=== PATIENT | female | born 1945 | race Two or more races ===

== ENCOUNTER 2016-08-17 17:48 | Inpatient (IN) | payer MEDICARE, MEDICAID ==
[~2016-08-17] VITALS: Ht 162.6 cm; Wt 65.9 kg
[~2016-08-17 17:48] MED LIST: CALC-355 PO; CHLO25TA PO; CHOL400C11 PO; CHOL5000 PO; FLUT1AER INH; LEVO25TA4 PO; LISI-170 PO; LISI2.5T PO; METO25TA35 PO; NAPR375T3 PO; PRAV10TA2 PO; calcium PO; statin PO; water pill PO
[2016-08-17 19:00] LABS: BLOOD UREA NITROGEN 20 mg/dL (7-18)
[2016-08-17 19:08] LABS: ASPARTATE AMINO TRANSFERASE 31 U/L (15-37)
[2016-08-17 19:10] LABS: IS PT STATUS REG ER OR PRE ER? YES
[2016-08-17] MEDS ORDERED: OMNIPAQUE 350 MG/ML, 100ML BOTTLE ONE (19:16)
[2016-08-17] MEDS ORDERED: SODIUM CHLORIDE 0.9% 1,000ML IVBOLUS ONE (19:30)
[2016-08-17] MEDS ORDERED: FLUT1BLS INH (20:05)
[2016-08-17] MEDS ORDERED: PRAV10TA2 PO (20:05)
[2016-08-17] MEDS ORDERED: METO25TA35 PO (20:05)
[2016-08-17] MEDS ORDERED: LEVO100T5 PO (20:05)
[2016-08-17] MEDS ORDERED: CHOL100015 PO (20:05)
[2016-08-17] MEDS ORDERED: LISI-170 PO (20:05)
[2016-08-17] MEDS ORDERED: NAPR375T3 PO (20:05)
[2016-08-17 22:30] VITALS: BP 151/75
[2016-08-17] MEDS ORDERED: ACETAMINOPHEN 325 MG TABLET PO PRN (22:30)
[2016-08-17] MEDS ORDERED: TEMAZEPAM 15 MG CAPSULE PO PRN (22:30)
[2016-08-17] MEDS ORDERED: LABETALOL 5MG/ML, 20ML IVPush PRN (22:30)
[2016-08-17] MEDS ORDERED: DOCUSATE 100 MG CAPSULE PO PRN (22:30)
[2016-08-18] VITALS: BP 151/76
[2016-08-18] MEDS: PRAVASTATIN 20 MG TABLET PO SCH ×2 (00:43→21:04)
[2016-08-18] MEDS: METOPROLOL TARTRATE 25 MG TABLET PO SCH ×2 (00:43→10:02)
[2016-08-18] MEDS: ENOXAPARIN 40 MG/0.4 ML SQ SCH (00:46)
[2016-08-18 00:49] VITALS: BP 145/83
[2016-08-18 01:14] LABS: IS PT STATUS REG ER OR PRE ER? NO
[2016-08-18 06:16] LABS: BLOOD UREA NITROGEN 16 mg/dL (7-18)
[2016-08-18 06:27] LABS: IS PT STATUS REG ER OR PRE ER? NO
[2016-08-18 07:21] VITALS: BP 145/87
[2016-08-18] MEDS ORDERED: LEVOTHYROXINE 100 MCG TABLET PO SCH (09:00)
[2016-08-18] MEDS ORDERED: CHOLECALCIFEROL 1,000 UNIT TABLET PO SCH ×2 (09:00→21:00)
[2016-08-18] MEDS: FLUTICASONE/VILANTEROL 200-25MCG/INH INH SCH (09:57)
[2016-08-18] MEDS: LISINOPRIL 20 MG TABLET PO SCH (10:02)
[2016-08-18 10:12] VITALS: BP_SYST 131; BP_SYST 136; BP_SYST 151; BP_DIAS 73; BP_DIAS 78; BP_DIAS 80
[2016-08-18] MEDS ORDERED: METO25TA91 PO (12:39)
[2016-08-18 14:03] VITALS: BP 135/70
[2016-08-18] MEDS: FUROSEMIDE 20 MG TABLET PO SCH (16:16)
[2016-08-18 19:22] VITALS: BP 131/82
[2016-08-19] MEDS: ENOXAPARIN 40 MG/0.4 ML SQ SCH (00:39)
[2016-08-19 02:31] VITALS: BP 151/84
[2016-08-19] MEDS: METOPROLOL SUCCINATE 25 MG TAB.ER.24H PO SCH ×2 (06:00→06:56)
[2016-08-19] MEDS: LEVOTHYROXINE 125 MCG TABLET PO SCH (06:05)
[2016-08-19] MEDS ORDERED: LEVOTHYROXINE 100 MCG TABLET PO SCH (06:30)
[2016-08-19 06:32] VITALS: BP 155/87
[2016-08-19] MEDS: LISINOPRIL 20 MG TABLET PO SCH ×2 (09:19→21:14)
[2016-08-19] MEDS: FUROSEMIDE 20 MG TABLET PO SCH (09:20)
[2016-08-19] MEDS: FLUTICASONE/VILANTEROL 200-25MCG/INH INH SCH (11:11)
[2016-08-19] MEDS ORDERED: BISACODYL 10 MG SUPP PR PRN (11:30)
[2016-08-19 12:01] VITALS: BP 148/80
[2016-08-19] MEDS ORDERED: CHOLECALCIFEROL 1,000 UNIT TABLET PO SCH (21:00)
[2016-08-19] MEDS: PRAVASTATIN 20 MG TABLET PO SCH (21:13)
[2016-08-19 23:15] VITALS: BP 116/67
[2016-08-20] MEDS: ENOXAPARIN 40 MG/0.4 ML SQ SCH (00:27)
[2016-08-20 02:14] VITALS: BP 119/53
[2016-08-20] MEDS: METOPROLOL SUCCINATE 25 MG TAB.ER.24H PO SCH (05:57)
[2016-08-20] MEDS: LEVOTHYROXINE 125 MCG TABLET PO SCH (06:29)
[2016-08-20 07:22] VITALS: BP 134/74
[2016-08-20] MEDS: LISINOPRIL 20 MG TABLET PO SCH (10:07)
[2016-08-20] MEDS: FUROSEMIDE 20 MG TABLET PO SCH (10:07)
[2016-08-20] MEDS: FLUTICASONE/VILANTEROL 200-25MCG/INH INH SCH (10:07)
[2016-08-20 10:08] VITALS: BP 131/62
[2016-08-20] MEDS ORDERED: DOCU-30 PO (12:13)
[2016-08-20] MEDS ORDERED: FURO20TA3 PO (12:13)
[2016-08-20] MEDS ORDERED: LISI-170 PO (12:13)
[2016-08-20] MEDS ORDERED: METO25TA91 PO (12:13)
[2016-08-20] MEDS ORDERED: LEVO125T PO (12:13)
[2016-08-20] MEDS ORDERED: CHOL10003 PO (12:13)
[2016-08-20 12:58] VITALS: BP 140/87
== END 2016-08-20 14:14 | disposition home or self-care (01) | DRG 293 ==
LOC: EDBD 17:48 → ED 21:03 → EDIP 22:42 → 4WST 23:03 → DCLOUNGE 08-20 13:50
PROVIDERS: ADMIT Internal Medicine; ATTEND Internal Medicine
DX: I11.0 Hypertensive heart disease with heart failure (principal); I50.23 Acute on chronic systolic (congestive) heart failure; I42.9 Cardiomyopathy, unspecified; E05.00 Thyrotoxicosis with diffuse goiter without thyrotoxic crisis or storm; E89.0 Postprocedural hypothyroidism; I34.0 Nonrheumatic mitral (valve) insufficiency; I34.1 Nonrheumatic mitral (valve) prolapse; J44.9 Chronic obstructive pulmonary disease, unspecified; Z87.891 Personal history of nicotine dependence; Z82.49 Family history of ischemic heart disease and other diseases of the circulatory system; Z88.5 Allergy status to narcotic agent; R55 Syncope and collapse
CPT/HCPCS: 36415; 70450; 71020; 71275; 80048; 80053; 82306; 82607; 83735; 83880; 84439; 84443; 84484; 85025; 85379; 93005; 93306; 93880; 96360; J1650; Q9967; J7030

== ENCOUNTER → 2016-12-07 | Outpatient (CLI) | payer MEDICARE, MEDICAID ==
[~2016-12-07] MED LIST changes: +CHOL100015 PO; +CHOL10003 PO; +DOCU-131 PO; +FLUT1BLS INH; +FURO20TA3 PO; +LEVO100T5 PO; +LEVO125T PO; +METO25TA91 PO; +OMNIPAQUE 350 MG/ML, 100ML BOTTLE ONE
== END | disposition home or self-care (01) ==
LOC: CFH 13:19 → MERGE 13:30
PROVIDERS: ATTEND Internal Medicine
DX: E89.0 Postprocedural hypothyroidism (principal)
CPT/HCPCS: 70491; Q9967

== ENCOUNTER 2017-01-24 17:49 | Emergency (ER) | payer MEDICARE, MEDICAID ==
[~2017-01-24] VITALS: Ht 165.1 cm; Wt 65.6 kg
[~2017-01-24 17:49] MED LIST changes: +NAPR-868 PO; -NAPR375T3 PO; -OMNIPAQUE 350 MG/ML, 100ML BOTTLE ONE
[2017-01-24 17:51] VITALS: BP 178/94
[2017-01-24] MEDS ORDERED: LEVO88TA2 PO (18:11)
[2017-01-24] MEDS ORDERED: METO-99 PO (18:11)
[2017-01-24] MEDS ORDERED: METO25TA35 PO (18:11)
[2017-01-24] MEDS ORDERED: LISI-170 PO (18:11)
[2017-01-24] MEDS ORDERED: DIPH,PERTUSS(ACELL),TET VAC/PF 0.5 ML IM-VACC ONE ×2 (18:56→19:00)
[2017-01-24] MEDS ORDERED: BACITRACIN ZINC OINT 500U/GM, 0.9 GM ONE (19:08)
== END 2017-01-24 19:28 | disposition home or self-care (01) ==
LOC: ED 19:22
DX: S00.212A Abrasion of left eyelid and periocular area, initial encounter (principal); I10 Essential (primary) hypertension; R51 Headache; E89.0 Postprocedural hypothyroidism; Z88.5 Allergy status to narcotic agent; Z87.891 Personal history of nicotine dependence; W19.XXXA Unspecified fall, initial encounter; Y93.89 Activity, other specified; Y92.009 Unspecified place in unspecified non-institutional (private) residence as the place of occurrence of the external cause; Y99.9 Unspecified external cause status
CPT/HCPCS: 70450; 70486; 72125; 90471; 90715

== ENCOUNTER 2017-03-29 17:38 | Emergency (ER) | payer MEDICARE, MEDICAID ==
[~2017-03-29] VITALS: Ht 157.5 cm; Wt 64.5 kg
[~2017-03-29 17:38] MED LIST changes: +LEVO88TA2 PO; +METO-99 PO
[2017-03-29 18:18] LABS: RAPID INFLUENZA A Negative (Negative); RAPID INFLUENZA B Negative (Negative)
[2017-03-29 18:32] LABS: BASOPHILS # (AUTO) 0.01 x10^3/uL (0-0.1); BASOPHILS % (AUTO) 0 % (0-1); EOSINOPHILS # (AUTO) 0.03 x10^3/uL (0-0.4); EOSINOPHILS % (AUTO) 0 % (1-7); LYMPHOCYTES # (AUTO) 1.05 x10^3/uL (1-3.4); LYMPHOCYTES % (AUTO) 15 % (22-44); MD NO; MEAN CORPUSCULAR HEMOGLOBIN 26.6 pg (27.0-34.8); MEAN CORPUSCULAR HGB CONC 32.3 g/dL (32.4-35.8); MEAN CORPUSCULAR VOLUME 82.3 fL (80-100); MEAN PLATELET VOLUME 8.1 fL (7.4-10.4); MONOCYTES # (AUTO) 0.54 x10^3/uL (0.2-0.8); MONOCYTES % (AUTO) 8 % (2-9); NEUTROPHILS # (AUTO) 5.37 x10^3/uL (1.8-6.8); NEUTROPHILS % (AUTO) 77 % (42-75); PLATELET COUNT 229 x10^3/uL (130-400); RED BLOOD COUNT 5.93 x10^6/uL (3.82-5.3); RED CELL DISTRIBUTION WIDTH 15.4 % (9.6-15.2)
[2017-03-29 18:42] LABS: ALBUMIN 3.4 g/dL (3.4-5.0); ANION GAP 6 mmol/L (5-15); CALCIUM 9.2 mg/dL (8.5-10.1); CHLORIDE 105 mmol/L (98-107); CREATININE 0.94 mg/dL (0.55-1.02)
[2017-03-29] MEDS ORDERED: ALBUTEROL/IPRATROPIUM 2.5MG/0.5MG, 3 ML NPPB ONE (19:00)
[2017-03-29 19:19] LABS: TROPONIN I 0.016 ng/mL (0.000-0.045)
[2017-03-29 20:00] VITALS: BP 130/91
== END 2017-03-29 20:02 | disposition home or self-care (01) ==
LOC: ED 19:44
DX: J98.01 Acute bronchospasm (principal); J06.9 Acute upper respiratory infection, unspecified; I10 Essential (primary) hypertension
CPT/HCPCS: 36415; 71010; 80048; 82040; 84484; 85025; 87400; 93005; 94640; 99285; J7512; J7620